=== PATIENT | male | born 1945 ===

== ENCOUNTER 2020-02-13 09:04 | Outpatient (CLI) | payer OTHER | END 2020-02-13 09:12 | disposition home or self-care (01) | LOC: SONOGRAMA 09:04 | PROVIDERS: ATTEND Internal Medicine | DX: E04.2 Nontoxic multinodular goiter (principal) ==

== ENCOUNTER 2021-02-11 08:12 | Outpatient (CLI) | payer OTHER | END 2021-02-11 08:21 | disposition home or self-care (01) | LOC: TOM 08:12 | PROVIDERS: ATTEND Internal Medicine Gastroenterology | DX: K57.30 Diverticulosis of large intestine without perforation or abscess without bleeding (principal); Z12.11 Encounter for screening for malignant neoplasm of colon; D13.1 Benign neoplasm of stomach; K44.9 Diaphragmatic hernia without obstruction or gangrene; K63.5 Polyp of colon ==

== ENCOUNTER 2021-07-09 06:49 | Day surgery (SDC) | payer OTHER ==
[~2021-07-09 06:49] MED LIST: COZAAR50 MG PO; CRESTOR20 MG PO; LEVO-T25 MCG PO
[2021-07-09] MEDS ORDERED: NEURONTIN600 M1 PO (17:47)
[2021-07-09] MEDS ORDERED: PERCOCET 5-3251 EACH PO (17:47)
[2021-07-09] MEDS ORDERED: POLY119PG PO (17:48)
== END 2021-07-09 20:55 | disposition home or self-care (01) ==
LOC: CIR.AMB 06:49
PROVIDERS: ATTEND Surgery
DX: K40.90 Unilateral inguinal hernia, without obstruction or gangrene, not specified as recurrent (principal); I10 Essential (primary) hypertension; E03.9 Hypothyroidism, unspecified

== ENCOUNTER 2022-09-15 08:23 | Outpatient (CLI) | payer OTHER ==
[~2022-09-15 08:23] MED LIST changes: +NEURONTIN600 M1 PO; +PERCOCET 5-3251 EACH PO; +POLY119PG PO
== END 2022-09-15 08:24 | disposition home or self-care (01) ==
LOC: SONOGRAMA 08:23
PROVIDERS: ATTEND Internal Medicine
DX: R16.0 Hepatomegaly, not elsewhere classified (principal)